=== PATIENT | female | born 2000 | race Caucasian/White ===

== ENCOUNTER → 2020-10-17 | Outpatient (CLI) | payer BC, OTHER | LOC: SLEEP-COR 14:46 | DX: G47.33 Obstructive sleep apnea (adult) (pediatric) (principal); R06.83 Snoring; H92.03 Otalgia, bilateral; R09.81 Nasal congestion; K21.9 Gastro-esophageal reflux disease without esophagitis; M54.2 Cervicalgia; M26.609 Unspecified temporomandibular joint disorder, unspecified side; G47.10 Hypersomnia, unspecified; R49.0 Dysphonia; Z90.89 Acquired absence of other organs | CPT/HCPCS: 95810 ==